=== PATIENT | male | born 1950 | race Caucasian/White ===

== ENCOUNTER 2018-06-05 09:18 | Emergency (ER) | payer OTHER, BC, MEDICARE ==
[~2018-06-05] VITALS: Ht 185.4 cm; Wt 84.0 kg
[~2018-06-05 09:18] MED LIST: CYCL-1 PO; NO HOME MEDS
[2018-06-05 09:36] VITALS: BP 115/82
== END 2018-06-05 11:01 | disposition home or self-care (01) ==
LOC: ER 09:18
DX: S93.602A Unspecified sprain of left foot, initial encounter (principal); X58.XXXA Exposure to other specified factors, initial encounter; Y93.89 Activity, other specified; Y92.89 Other specified places as the place of occurrence of the external cause; Y99.8 Other external cause status
CPT/HCPCS: 73630; 99284